=== PATIENT | female | born 1995 | race Caucasian/White ===

== ENCOUNTER 2022-12-07 12:17 | Emergency (ER) | payer OTHER ==
[~2022-12-07] VITALS: Ht 157.5 cm; Wt 70.0 kg
[2022-12-07 12:25] VITALS: O2SAT 100
[2022-12-07 13:08] LABS: CLARITY URINE CLEAR (CLEAR); COLOR URINE YELLOW (YELLOW); GLUCOSE URINE NEGATIVE (NEGATIVE); KETONES URINE NEGATIVE (NEGATIVE); LEUKOCYTE ESTERASE URINE TRACE (NEGATIVE); NITRITE URINE NEGATIVE (NEGATIVE); OCCULT BLOOD URINE NEGATIVE (NEGATIVE); PROTEIN URINE NEGATIVE (NEGATIVE); SPECIFIC GRAVITY URINE 1.014 (1.005-1.030); UROBILINOGEN URINE 0.2 E.U./dL (0.2-1.0)
[2022-12-07 13:22] LABS: SQUAMOUS EPITHELIAL CELL URINE FEW /lpf (RARE/1+)
[2022-12-07 13:23] LABS: BACTERIA URINE 1+; RBC URINE NONE SEEN /hpf (0-2); WBC URINE 0-2 /hpf (0-2)
[2022-12-07] MEDS ORDERED: DIF15 MT (13:37)
[2022-12-07] MEDS ORDERED: METR-167 MT (13:53)
[2022-12-07 13:54] VITALS: BP 125/87; PULSE 64; RESP 16; TEMP 98.6
[2022-12-11 04:08] LABS: CHLAMYDIA TRACHOMATIS NAA Negative (Negative); NEISSERIA GONORRHOEAE NAA Negative (Negative)
== END 2022-12-07 13:59 | disposition home or self-care (01) ==
LOC: ER 12:52
DX: R87.9 Unspecified abnormal finding in specimens from female genital organs (principal)
CPT/HCPCS: 81003; 81025; 87210; 87491; 87591; 99284